=== PATIENT | male | born 1950 | race Caucasian/White ===

== ENCOUNTER → 2016-05-21 | Outpatient (CLI) | payer MEDICARE, BC | LOC: PCVCCLINIC 14:00 | PROVIDERS: ATTEND Internal Medicine | DX: I25.10 Atherosclerotic heart disease of native coronary artery without angina pectoris (principal); R94.31 Abnormal electrocardiogram [ECG] [EKG]; E78.5 Hyperlipidemia, unspecified; R09.89 Other specified symptoms and signs involving the circulatory and respiratory systems | CPT/HCPCS: 93005; G0463 ==

== ENCOUNTER → 2016-05-28 | Outpatient (CLI) | payer MEDICARE, BC | LOC: PCVCIMAG 14:44 | PROVIDERS: ATTEND Internal Medicine | DX: I65.22 Occlusion and stenosis of left carotid artery (principal) | CPT/HCPCS: 93325; 93351; 93880 ==

== ENCOUNTER → 2019-01-12 | Outpatient (CLI) | payer MEDICARE, BC ==
--- NOTE | 2019-01-12 16:40 | PCVCIMAG ---
APPROVED REPORT Study performed: 01/12/2019 10:09:13 Exam: Stress Echocardiogram Indication: Palpitations Patient Location: Echo lab Stress Nurse: Sydnie Ignacio RN Status: routine Ht: 6 ft 0 in HR: 71 bpm BP: 130/85 mmHg Rhythm: NSR Medical History Medical History: Hyperlipidemia, Elevated calcium score, PVC's Procedure The patient underwent an Exercise Stress Test using the Aakash Protocol. Blood pressure, heart rate, and EKG were monitored. An Echocardiogram was performed by solar installer technician in four stages in quad fashion. At peak stress, four selected images were obtained and placed side by side with resting images for comparison. Stress Test Details Stress Test: Exercise stress testing was performed using a Aakash protocol. HR Resting HR: 71 bpmMax Heart Rate (APMHR): 150 bpm Max HR Achieved: 148 bpmTarget HR (85% APMHR): 127 bpm % of APMHR: 98 Recovery HR: 81 bpm HR response to stress: Normal HR response to stress BP Resting BP: 130/85 mmHg Max BP: 164/82 mmHg Recovery BP: 140/74 mmHg BP response to stress: Normal blood pressure response to stress. ECG Resting ECG: Sinus Rhythm Stress ECG: Sinus Rhythm ST Change: Normal Maximum ST Deviation: 0 mm Arrhythmia: VPC's Recovery ECG: Sinus Rhythm Recovery ST Change: Normal Recovery ST Deviation: 0 mm Recovery Arrhythmia: VPC's Clinical Reason for Termination: Maximal effort Exercise duration: 10 min 16 sec Highest Stage Achieved: Stage 3: 3.4 mph at 14% grade. Exercise capacity: 13.40 METs Overall Exercise Capacity for Age: Good Angina Score: None Stress ECG Conclusion Clinical: Non-ischemic ECG: Non-ischemic Desir Treadmill Score is 10.0 which is Low risk. Pre-Stress Echo The resting Echocardiogram showed normal left ventricular contractility with an estimated Ejection Fraction of about 50-55%. Normal wall motion in all segments on baseline images. Post-Stress Echo The stress Echocardiogram showed normal left ventricular contractility with an estimated Ejection Fraction of about 55-60%. Normal augmentation of wall motion in all segments on post stress images. Clinical No clinical or ECG evidence for ischemia. Conclusion Clinical Response: Non-ischemic Exercise Capacity: Average Stress ECG Response: Non-ischemic Stress Echo Images: Non-ischemic The left ventricle is normal in size and wall thickness in both the rest and stress images. Trace tricuspid regurgitation. No other valvular abnormalities. Normal stress echocardiogram with maximal exercise stress. Other Information Study Quality: Adequate <Conclusion> The left ventricle is normal in size and wall thickness in both the rest and stress images. Trace tricuspid regurgitation. No other valvular abnormalities. Normal stress echocardiogram with maximal exercise stress.
== END | disposition home or self-care (01) ==
LOC: PCVCIMAG 09:54
PROVIDERS: ATTEND Internal Medicine
DX: E83.52 Hypercalcemia (principal); E78.5 Hyperlipidemia, unspecified
CPT/HCPCS: 93325; 93351